=== PATIENT | male | born 1970 | race African-American/Black ===

== ENCOUNTER 2023-03-04 13:10 | Outpatient (REF) | payer OTHER, SELFPAY ==
--- NOTE | 2023-03-04 13:20 | EMG_ITS ---
Chief complaint: Right wrist pain, hand numbness Per referral notes, patient had a prior study in July. He continues to have left-sided hand tingling and numbness. Patient did not have findings on C-spine MRI to account for this. Reason for referral: Please do left-sided EMG nerve conduction studies for evaluation of hand numbness. Comparative study of the opposite side as necessary. Referred by: Dr. Patricia Friedman Procedure done: Bilateral upper extremities NCS, left upper extremity EMG Precautions and/or limitations: None The limb temperature was monitored continuously and remained between 32-36 degrees C during the performance of the NCS. Nerve Conduction Studies Anti Sensory Summary Table ?Stim Site NR Onset (ms) Norm Onset (ms) Peak (ms) Norm Peak (ms) O-P Amp (?V) Norm O-P Amp Site1 Site2 Delta-0 (ms) Dist (cm) Tien (m/s) Norm Tien (m/s) Left Median Anti Sensory (2nd Digit) Wrist ? 3.6 4.0 <3.6 14.6 >10 Wrist 2nd Digit 3.6 14.0 39 Right Median Anti Sensory (2nd Digit) Wrist ? 3.1 3.5 <3.6 20.0 >10 Wrist 2nd Digit 3.1 14.0 45 Left Ulnar Anti Sensory (5th Digit) Wrist ? 2.3 3.8 <3.7 22.0 >15.0 Wrist 5th Digit 2.3 14.0 61 Motor Summary Table ?Stim Site NR Onset (ms) Norm Onset (ms) O-P Amp (mV) Norm O-P Amp iAmp (mV) Amp (1st) (%) Site1 Site2 Delta-0 (ms) Dist (cm) Tien (m/s) Norm Tien (m/s) Left Median Motor (Abd Poll Brev) Wrist ? 3.7 <3.9 11.0 >4.5 13.1 100.0 Elbow Wrist 4.5 20.5 46 >45 Elbow ? 8.2 8.8 10.4 80.0 Right Median Motor (Abd Poll Brev) Wrist ? 3.6 <3.9 10.7 >4.5 12.5 100.0 Elbow Wrist 4.5 21.0 47 >45 Elbow ? 8.1 8.4 9.9 78.5 Left Ulnar Motor Run #2 (Abd Dig Minimi) Wrist ? 3.0 <3.0 6.5 >5 8.3 100.0 B Elbow Wrist 4.3 21.0 49 >45 B Elbow ? 7.3 5.2 7.0 80.0 A Elbow B Elbow 2.2 10.0 45 >45 A Elbow ? 9.5 4.5 6.0 69.2 Comparison Summary Table ?Stim Site NR Peak (ms) Norm Peak (ms) P-T Amp (?V) Site1 Site2 Delta-P (ms) Norm Delta (ms) Left Median/Radial Dig I Comparison (Digit 1 - 10cm) Median ? 3.0 <2.9 31.0 Median Radial -0.2 Radial ? 3.2 <2.8 7.1 Right Median/Radial Dig I Comparison (Digit 1 - 10cm) Median ? 2.5 <2.9 26.9 Median Radial 0.4 Radial ? 2.1 <2.8 21.7 Left Median/Ulnar Dig IV Comparison (Digit 4 - 14cm) Median Wr ? 3.5 <3.3 26.1 Median Wr Ulnar Wr -0.5 Ulnar Wr ? 4.0 <3.3 3.5 Right Median/Ulnar Dig IV Comparison (Digit 4 - 14cm) Median Wr ? 3.3 <3.3 12.4 Median Wr Ulnar Wr 0.0 Ulnar Wr ? 3.3 <3.3 1.9 EMG ?Side Muscle Nerve Root Ins Act Fibs Psw Amp Dur Poly Recrt Int Pat Comment Left 1stDorInt Ulnar C8-T1 Nml Nml Nml Nml Nml 0 Nml Complete Left FlexCarRad Median C6-7 Nml Nml Nml Nml Nml 0 Nml Complete Left Biceps Musculocut C5-6 Nml Nml Nml Nml Nml 0 Nml Complete Left Triceps Radial C6-7-8 Nml Nml Nml Nml Nml 0 Nml Complete Left Deltoid Axillary C5-6 Nml Nml Nml Nml Nml 0 Nml Complete FINDINGS: Left median sensory nerve showed prolonged peak latency. All other nerves tested were within normal. No significant interlatency differences between median and radial sensory nerves; or between median and ulnar sensory nerves. Comparison studies done on right side. Concentric needle EMG was performed in selected muscles of the left upper extremity. Study did not reveal signs of electric abnormalities as shown in the table below. IMPRESSION: 1. This is an abnormal study. 2. There is electrodiagnostic evidence for left mild median neuropathy at the wrist, consistent with carpal tunnel syndrome. 3. There is no electrodiagnostic evidence for ulnar neuropathy, brachial plexopathy, or cervical radiculopathy on the right. 4. There is no electrodiagnostic evidence for median neuropathy on the right. Thank you for your kind referral. Kathy Rutledge MD, PARK Board Certified, [place] [employer] and [employer] (ABPMR) Board Certified, [place] [employer] Electro[employer] (ABEM) [place] [id number] [facility]
== END 2023-03-04 13:11 | disposition home or self-care (01) ==
LOC: HO.NEURO 13:10
PROVIDERS: Visit Provider Orthopaedic Surgery
DX: R20.0 Anesthesia of skin (principal); M25.531 Pain in right wrist
CPT/HCPCS: 95886; 95910

== ENCOUNTER → 2023-03-04 13:20 | Outpatient (BNV) | payer OTHER, SELFPAY | PROVIDERS: Visit Provider Physical Medicine & Rehabilitation | DX: G56.13 Other lesions of median nerve, bilateral upper limbs (principal); G56.03 Carpal tunnel syndrome, bilateral upper limbs | CPT/HCPCS: 95886; 95910 ==